=== PATIENT | female | born 1975 | race Two or more races ===

== ENCOUNTER 2016-11-21 20:56 | Emergency (ER) | payer MEDICAID ==
[~2016-11-21] VITALS: Ht 157.5 cm; Wt 74.6 kg
[2016-11-21] MEDS ORDERED: KETOROLAC TROMETH 60MG/2ML VIAL IM ONE (23:30)
[2016-11-22] MEDS ORDERED: HYDROcodone-ACET 10/325MG TAB PO ONE (01:15)
[2016-11-22 02:21] VITALS: BP 138/68
== END 2016-11-22 02:21 | disposition home or self-care (01) ==
LOC: ER 21:12
DX: M76.61 Achilles tendinitis, right leg (principal); Z86.73 Personal history of transient ischemic attack (TIA), and cerebral infarction without residual deficits; Z90.49 Acquired absence of other specified parts of digestive tract
CPT/HCPCS: 29515; 73600; 73630; 73700; 96372; 99284; J1885